=== PATIENT | female | born 1935 | race Two or more races ===

== ENCOUNTER 2017-05-18 12:57 | Emergency (ER) | payer MEDICARE, MEDICAID ==
[~2017-05-18] VITALS: Ht 162.6 cm; Wt 67.1 kg
[2017-05-18 13:50] VITALS: BP 164/82
[2017-05-18 14:26] LABS: BASOPHILS % (AUTO) 0.7 % (0.0-2.0); EOSINOPHILS % (AUTO) 0.2 % (0.0-3.0); LYMPHOCYTES % (AUTO) 19.6 % (20.0-45.0); MEAN CORPUSCULAR HEMOGLOBIN 29.6 PG (27.0-31.0); MEAN CORPUSCULAR HGB CONC 31.7 G/DL (32.0-36.0); MEAN CORPUSCULAR VOLUME 93 FL (80-99); MEAN PLATELET VOLUME 7.6 FL (6.5-10.1); MONOCYTES % (AUTO) 7.6 % (1.0-10.0); NEUTROPHILS % (AUTO) 71.9 % (45.0-75.0); PLATELET COUNT 365 K/UL (150-450); RED BLOOD COUNT 3.86 M/UL (4.20-5.40); WHITE BLOOD COUNT 13.8 K/UL (4.8-10.8)
[2017-05-18 14:42] LABS: ANION GAP 12 mmol/L (5-15); CALCIUM 9.5 MG/DL (8.5-10.1); CARBON DIOXIDE 24 MMOL/L (21-32); CHLORIDE 102 MMOL/L (98-107); POTASSIUM 4.6 MMOL/L (3.5-5.1); SODIUM 138 MMOL/L (136-145)
[2017-05-18 14:46] LABS: ALANINE AMINOTRANSFERASE 13 U/L (12-78); ALBUMIN/GLOBULIN RATIO 0.8 (1.0-2.7); ASPARTATE AMINO TRANSFERASE 28 U/L (15-37); TOTAL PROTEIN 7.2 G/DL (6.4-8.2)
[2017-05-18 16:02] VITALS: BP 135/65
--- NOTE | 2017-05-18 20:37 | Diagnostic Imaging Report ---
APPROVED REPORT CPT Code: 84767 Symptoms Comments: Recent Right Hip surgery RIGHT LEG: The iliac artery and common femoral artery waveform analysis is within normal limits at rest. Color flow duplex sonography minimal reveals calcification throughout the superficial femoral and popliteal arteries. There is no evidence of significant stenosis or occlusion within these segments. The tibioperoneal trunk is patent. Ankle brachial at rest.
--- NOTE | 2017-05-18 20:39 | Diagnostic Imaging Report ---
APPROVED REPORT CPT Code: 95219 Present Symptoms Comments: Recent Right hip surgery RIGHT LEG: Venous imaging reveals a patent deep venous system. There is no evidence of thrombus within the femoral, popliteal or tibial segments. The greater saphenous vein is also within normal limits. Doppler indicates normal spontaneous flow within these segments.
--- NOTE | 2017-05-18 22:17 | Emergency Room Report ---
History of Present Illness General Chief Complaint: Lower Extremity Injury Source: Patient, Family Member Present Illness HPI The patient is an 81-year-old female presenting for right hip pain status post right hip surgery 10 days prior. She is accompanied by her daughter who is interpreting. Pain has been present since surgery as well as swelling to the area. Pain is a 10 out of 10 dull ache and does not radiate. Worse with movement and touch. Better with rest. 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 She also admits to mild a numbing of the right leg. She denies other symptoms including nausea, vomiting, chest pain, shortness of breath, cough, fever, chills, chest pain, shortness of breath Allergies: Coded Allergies: No Known Allergies (Verified Allergy, Mild, 11/13/09) Patient History Past Surgical History: other - R hip 10 days prior Last Menstrual Period: na Reviewed Nursing Documentation: PMH: Agreed, PSxH: Agreed Nursing Documentation-PMH Past Medical History: No History, Except For Hx Hypertension: Yes Hx Diabetes: Yes Review of Systems All Other Systems: negative except mentioned in HPI Physical Exam Vital Signs Date Time Temp Pulse Resp B/P (MAP) Pulse Ox O2 Delivery O2 Flow Rate FiO2 05/18/17 13:05 97.5 74 18 132/83 99 Room Air Sp02 EP Interpretation: reviewed, normal General Appearance: no apparent distress, alert, GCS 15, non-toxic Head: normocephalic, atraumatic Eyes: bilateral eye normal inspection, bilateral eye PERRL ENT: hearing grossly normal, normal pharynx, no angioedema, normal voice Neck: full range of motion, supple/symm/no masses Respiratory: chest non-tender, lungs clear, normal breath sounds, speaking full sentences Cardiovascular #1: regular rate, rhythm, no edema Cardiovascular #2: 2+ femoral (R), 2+ femoral (L), 2+ dorsalis pedis (R), 2+ dorsalis pedis (L) Musculoskeletal: no calf tenderness, swelling - R lateral hip, tender - R lateral hip Neurologic: alert, oriented x3, responsive, motor strength/tone normal, sensory intact, speech normal Psychiatric: judgement/insight normal, memory normal, mood/affect normal, no suicidal/homicidal ideation Skin: no rash, wd healing/no infection noted, other - R leg cool to the touch Lymphatic: no adenopathy Medical Decision Making PA Attestation Dr. Aguilera is my supervising physician. Patient management was discussed with my supervising physician Diagnostic Impression: Primary Impression: Hip pain, right ER Course The patient is an 81-year-old female presenting for right hip pain status post right hip surgery 10 days prior Differential diagnoses considered but not limited to: Cellulitis, abscess, DVT, arterial occlusion, venous insufficiency, among others Physical exam: No apparent distress. Afebrile. No tachycardia or tachypnea. Right hip: Lateral incision is well approximated. No surrounding erythema. No discharge. There is soft tissue swelling as well as tenderness to palpation surrounding the incision. The right leg is colder to touch than the left leg. DP pulses 2+ bilaterally DVT study of the right lower extremity is unremarkable Arterial duplex is unremarkable as well The patient declined any pain medication She will be discharged home and will followup with her surgeon and primary doctor. ER precautions are given Laboratory Tests Test 05/18/17 14:09 White Blood Count 13.8 K/UL (4.8-10.8) H Red Blood Count 3.86 M/UL (4.20-5.40) L Hemoglobin 11.4 G/DL (12.0-16.0) L Hematocrit 36.1 % (37.0-47.0) L Mean Corpuscular Volume 93 FL (80-99) Mean Corpuscular Hemoglobin 29.6 PG (27.0-31.0) Mean Corpuscular Hemoglobin Concent 31.7 G/DL (32.0-36.0) L Red Cell Distribution Width 13.0 % (11.6-14.8) Platelet Count 365 K/UL (150-450) Mean Platelet Volume 7.6 FL (6.5-10.1) Neutrophils (%) (Auto) 71.9 % (45.0-75.0) Lymphocytes (%) (Auto) 19.6 % (20.0-45.0) L Monocytes (%) (Auto) 7.6 % (1.0-10.0) Eosinophils (%) (Auto) 0.2 % (0.0-3.0) Basophils (%) (Auto) 0.7 % (0.0-2.0) Prothrombin Time 10.0 SEC (9.30-11.50) Prothrombin Time INR 1.0 (0.9-1.1) PTT 24 SEC (23-33) Sodium Level 138 MMOL/L (136-145) Potassium Level 4.6 MMOL/L (3.5-5.1) Chloride Level 102 MMOL/L (98-107) Carbon Dioxide Level 24 MMOL/L (21-32) Anion Gap 12 mmol/L (5-15) Blood Urea Nitrogen 22 mg/dL (7-18) H Creatinine 1.0 MG/DL (0.55-1.30) Estimate Glomerular Filtration Rate mL/min (>60) Glucose Level 107 MG/DL (74-106) H Calcium Level 9.5 MG/DL (8.5-10.1) Total Bilirubin 0.4 MG/DL (0.2-1.0) Aspartate Amino Transferase (AST) 28 U/L (15-37) Alanine Aminotransferase (ALT) 13 U/L (12-78) Alkaline Phosphatase 59 U/L (46-116) Total Protein 7.2 G/DL (6.4-8.2) Albumin 3.2 G/DL (3.4-5.0) L Globulin 4.0 g/dL Albumin/Globulin Ratio 0.8 (1.0-2.7) L Lab Results Impression CBC shows leukocytosis Otherwise unremarkable CT/MRI/US Diagnostic Results CT/MRI/US Diagnostic Results #1: Imaging Test Ordered: venous duplex R lower extremity Impression Unremarkable CT/MRI/US Diagnostic Results #2: Imaging Test Ordered: Arterial duplex R lower extermity Impression Unremarkable Last Vital Signs Date Time Temp Pulse Resp B/P (MAP) Pulse Ox O2 Delivery O2 Flow Rate FiO2 05/18/17 16:02 97.6 70 18 135/65 98 Room Air Status: improved Disposition: HOME, SELF-CARE Condition: Improved Patient Instructions: Hip Pain, Total Hip Replacement Additional Instructions: I discussed my findings with the patient's daughter which was interpreted to the patient. All questions and concerns have been answered. Treatment and medication compliance have been addressed. I advised the patient that they need to follow up with their orthopedic physician for follow-up. Return to ED if pain remains or worsens, numbness or tingling occurs, new rash is noticed, fever is noticed, swelling continues, you have shortness of breath/cough, or if needed for any reason. Patient verbalized understanding of discharge instructions. NEIL MARTÍNEZ May 18, 2017 22:17
== END 2017-05-18 16:19 | disposition home or self-care (01) ==
LOC: EMR 13:40
DX: M25.551 Pain in right hip (principal); M79.89 Other specified soft tissue disorders; I10 Essential (primary) hypertension; E11.9 Type 2 diabetes mellitus without complications; Z98.890 Other specified postprocedural states
CPT/HCPCS: 36415; 80053; 85025; 85610; 85730; 93926; 93971; 99284